=== PATIENT | male | born 1945 | race Caucasian/White ===

== ENCOUNTER → 2016-07-16 | Outpatient (CLI) | payer OTHER, MEDICARE | LOC: FIMAGING 08:44 | PROVIDERS: ATTEND Internal Medicine Hematology & Oncology | DX: R07.81 Pleurodynia (principal); M81.0 Age-related osteoporosis without current pathological fracture ==

== ENCOUNTER → 2017-03-14 | Outpatient (CLI) | payer OTHER, MEDICARE | LOC: BMCIMAGING 14:25 | PROVIDERS: ATTEND Internal Medicine Rheumatology | DX: Z13.820 Encounter for screening for osteoporosis (principal); M85.89 Other specified disorders of bone density and structure, multiple sites ==

== ENCOUNTER → 2017-04-08 | Outpatient (CLI) | payer OTHER, MEDICARE | LOC: FIMAGING 10:31 | PROVIDERS: ATTEND Internal Medicine Hematology & Oncology | DX: M89.9 Disorder of bone, unspecified (principal) ==

== ENCOUNTER 2017-04-27 10:59 | Day surgery (SDC) | payer OTHER, MEDICARE ==
[~2017-04-27 10:59] MED LIST: FLUMAZENIL 0.5 MG/5 ML MDV IVP PRN; MIDAZOLAM 2 MG/2 ML VIAL IVP PRN; NALOXONE HCL 0.4 MG/ML INJ IVP PRN; fentaNYL 100 MCG/2 ML INJ IVP PRN
[2017-04-27] MEDS ORDERED: NS 1,000 ML IV SCH (11:00)
[2017-04-27 11:51] VITALS: BP 141/76; PULSE 80; RESP 12; TEMP 99
[2017-04-27] MEDS ORDERED: fentaNYL 100 MCG/2 ML INJ ONE (12:08)
[2017-04-27] MEDS ORDERED: MIDAZOLAM 2 MG/2 ML VIAL ONE ×2 (12:09)
[2017-04-27 12:29] LABS: INR 1.05 (0.83-1.16); PROTIME(PATIENT) 13.9 SEC (12.0-15.0)
--- NOTE | 2017-04-27 12:36 | PDGENHP ---
History & Physical Chief Complaint: Painful left rib lesion. History of Present Illness: Monoclonal Gammopathy, followed for 8 years. Now with painful expansile left lytic lesion. Pertinent Past, Social, Family History: Allergic to Ceftin, Malarone. Relevant Physical Exam: Tender rib labeled on the skin. Cardiorespiratory Assessment: Lungs: Clear to auscultation. Heart: 64 bpm, RRR , no murmur.
--- NOTE | 2017-04-27 12:41 | PDPROPOC ---
Sedation Plan of Care Sedation Plan of Care: vital signs stable, mental status noted, patient educated of risks, benefits, alternatives, patient can tolerate sedation ASA Classification: ASA 2 Planned drugs: fentanyl, midazolam Mallampati Score: Class 2 Mallampati Reference Image: Patient passed 3-3-2 rule?: Yes
[2017-04-27] MEDS ORDERED: BUPIVACAINE 0.5% 30 ML SDV ONE (13:09)
--- NOTE | 2017-04-27 13:36 | PDRADPN ---
Radiology Procedure Note Date of Procedure: 04/27/17 Radiologist: Anthony Lopez Anesthesia: IV Sedation Pre-op Diagnosis: Monoclonal gammopathy of undetermined significance Post-op Diagnosis: Same Indication: Painful lytic lesion of left 7th rib Procedure: Core Biopsy of left 7th rib lesion Finding(s): Biopsy of focus of lytic destruction of left seventh rib. Inf/Abcess present in the surg proc area at time of surgery?: No EBL: Minimal Specimen(s): Core samples of left seventh rib lesion X 3. Two in formalin. One in Felipe's solution. I filled out requ. for histology.
[2017-04-27 13:58] VITALS: O2SAT 98
== END 2017-04-27 14:52 | disposition home or self-care (01) ==
LOC: FIMAGING 10:59
PROVIDERS: ATTEND Internal Medicine Hematology & Oncology
PROC: 0PB13ZX Excision of 1 to 2 Ribs, Percutaneous Approach, Diagnostic (ICD-10-PCS; principal; 2017-04-27 13:42)
DX: D47.2 Monoclonal gammopathy (principal); R07.81 Pleurodynia; Z87.09 Personal history of other diseases of the respiratory system
CPT/HCPCS: 88184-90; 88185-91; J2250; J3010

== ENCOUNTER → 2017-06-15 | Outpatient (CLI) | payer OTHER, MEDICARE | LOC: FIMAGING 12:58 | PROVIDERS: ATTEND Nurse Practitioner | DX: S22.42XA Multiple fractures of ribs, left side, initial encounter for closed fracture (principal); C90.00 Multiple myeloma not having achieved remission ==

== ENCOUNTER → 2018-01-31 | Outpatient (CLI) | payer OTHER, MEDICARE ==
[~2018-01-31] MED LIST changes: -FLUMAZENIL 0.5 MG/5 ML MDV IVP PRN; -MIDAZOLAM 2 MG/2 ML VIAL IVP PRN; -NALOXONE HCL 0.4 MG/ML INJ IVP PRN; +PENTAMIDINE ISETHIONATE 300MG/6ML INH SYRINGE NEB ONE; -fentaNYL 100 MCG/2 ML INJ IVP PRN
== END ==
LOC: FCP 07:59
PROVIDERS: ATTEND Internal Medicine Hematology & Oncology
DX: C90.00 Multiple myeloma not having achieved remission (principal); Z94.84 Stem cells transplant status
CPT/HCPCS: J2545

== ENCOUNTER → 2018-03-07 | Outpatient (CLI) | payer OTHER, MEDICARE | LOC: FCP 07:24 | PROVIDERS: ATTEND Internal Medicine Hematology & Oncology | DX: D86.9 Sarcoidosis, unspecified (principal); D47.2 Monoclonal gammopathy; M81.0 Age-related osteoporosis without current pathological fracture | CPT/HCPCS: 94642; J2545 ==

== ENCOUNTER → 2018-04-11 | Outpatient (CLI) | payer OTHER, MEDICARE | LOC: FCP 07:29 | PROVIDERS: ATTEND Internal Medicine Hematology & Oncology | DX: Z79.899 Other long term (current) drug therapy (principal) | CPT/HCPCS: 94642; J2545 ==

== ENCOUNTER → 2018-05-09 | Outpatient (CLI) | payer OTHER, MEDICARE | LOC: FCP 07:37 | PROVIDERS: ATTEND Internal Medicine Hematology & Oncology | DX: Z79.899 Other long term (current) drug therapy (principal) | CPT/HCPCS: 94642; J2545 ==